=== PATIENT | male | born 1995 | race Caucasian/White ===

== ENCOUNTER → 2019-12-13 | Outpatient (CLI) | payer OTHER ==
[~2019-12-13] MED LIST: NKA; XANAX .25M0.25 MG/TA PO
== END ==
LOC: BHSO 13:00
DX: F33.0 Major depressive disorder, recurrent, mild (principal)

== ENCOUNTER → 2019-12-26 | Outpatient (CLI) | payer OTHER | LOC: BHSO 13:14 | DX: F33.0 Major depressive disorder, recurrent, mild (principal) ==

== ENCOUNTER → 2020-01-02 | Outpatient (CLI) | payer OTHER | LOC: BHSO 13:01 | DX: F33.0 Major depressive disorder, recurrent, mild (principal) ==